=== PATIENT | female | born 1935 | race Caucasian/White ===

== ENCOUNTER 2016-09-06 10:22 | Emergency (ER) | payer MEDICARE, OTHER ==
[~2016-09-06] VITALS: Ht 160 cm; Wt 73.4 kg
[~2016-09-06 10:22] MED LIST: ADVAI100I PO; ALBU1AER INH; ATOR40TA49 PO; CALTTAB5 PO; CEFU1TAB43 PO; CLON-352 PO; DUONI INH; HYDR-3580 PO; LABE200T2 PO; LISI-363 PO; MAXZ25 PO; NITR.4 SL; NORV5TAB PO; NOVO7030P2 SQ; ONDA4TAB7 SL; PRED20 PO; ST JTAB PO; TAB-TAB PO; TIOT18I INH
[2016-09-06 10:28] VITALS: BP 193/81; PULSE 73; RESP 16; TEMP 97.6; O2SAT 94
--- NOTE | 2016-09-06 10:59 | PD ---
HPI Chief Complaint: Headache Time Seen by Provider: 10:44 Travel History International Travel<30 days: No Contact w/Intl Traveler<30days: No Traveled to known affect area: No History of Present Illness HPI This patient complains of having high blood pressure. She takes multiple antihypertensives each morning but did not take them this morning. She checked her pressure was high and she called her physician's office and they advised her to come here so she did not take her medicine. She does not of headache. No presyncopal symptoms. No neurologic complaints. She did have headache yesterday but it has resolved. She does not take blood thinners other than baby aspirin. No head injury. She arrives with a systolic blood pressure of 220. Duration of elevated readings is 3-4 days. Symptoms severity is mild/ asymptomatic. No alleviating factors. PFSH Past Medical History Hx Anticoagulant Therapy: Yes (BABY ASA DAILY) Arthritis: Yes Asthma: Yes Autoimmune Disease: No Anxiety: Yes Depression: No Heart Rhythm Problems: No Cancer: Yes (OVARIAN CA AT 26) Cardiovascular Problems: Yes (HTN , "SILENT PR", CHOL) High Cholesterol: Yes Chemotherapy: No Chest Pain: No Congestive Heart Failure: No COPD: Yes (DOES NOT WEAR OXYGEN) Cerebrovascular Accident: No Diabetes: Yes Patient Takes Glucophage: Yes Diminished Hearing: No Endocrine: Yes Fibromyalgia: Yes Gastrointestinal Disorders: Yes GERD: Yes Genitourinary: Yes (RENAL INSUFFICIENCY "I THINK" -PER PATIENT) Headaches: Yes Hiatal Hernia: No Hypertension: Yes Immune Disorder: No Kidney Stones: No Musculoskeletal: Yes Neurologic: Yes Psychiatric: No Reproductive: Yes Respiratory: Yes (COPD) Migraines: Yes Radiation Therapy: No Renal Failure: Yes Seizures: No Sickle Cell Disease: No Sleep Apnea: No Thyroid Disease: No Ulcer: No Tetanus Vaccination: < 5 Years Influenza Vaccination: Yes ?: Not Menopausal: Yes Past Surgical History Abdominal Surgery: Yes (GALLBLADDER (AGE 33)) AICD: No Arteriovenous Shunt: No Cardiac Surgery: No Cholecystectomy: Yes Ear Surgery: No Endocrine Surgery: No Eye Surgery: No Genitourinary Surgery: No Gynecologic Surgery: Yes (HYSTERECTOMY (AGE 26)) Hysterectomy: Yes Insulin Pump: No Joint Replacement: Yes (titanium nail per pt in right HIP) Oral Surgery: Yes (removed teeth for dentures) Pacemaker: No Thoracic Surgery: No Other Surgery: Yes Social History Alcohol Use: No Tobacco Use: No Substance Use: No Allergies-Medications (Allergen,Severity, Reaction): Coded Allergies: No Known Allergies (Verified , 09/06/16) Reported Meds & Prescriptions Reported Meds & Active Scripts Active Ceftin 500 Mg Tab (Cefuroxime Axetil) 500 Mg Tab 500 Mg PO BID 5 Days Advair Diskus 100/50 (Salmeterol Xinafoate/Fluticasone) Fluticasone/Salmeterol 100/50 Inh 1 Inhalation PO BID Deltasone 20 Mg Tab (Prednisone) 20 Mg Tab 40 Mg PO DAILY Hydrocodone/Acetaminophen 7.5 mg/325 mg 1 Tab Tab 1 Tab PO Q6 PRN Resp: Albuterol/Ipratropium 2.5 Mg/0.5 Mg (Albuterol/Ipratropium) 1 Ampule Nebu 1 Ampule INH Q6-RT PRN Proair Hfa (Albuterol Sulfate) 8.5 Gm Aero 1 Puff INH Q4 * SHAKE WELL BEFORE USE * Reported Lipitor 40 Mg Tab (Atorvastatin Calcium) 40 Mg Tab 40 Mg PO HS Aspirin Ec Low Dose (Aspirin) 81 Mg Tab 81 Mg PO DAILY Maxzide 37.5/25 Tab (Triamterene/HCTZ) 1 Tab Tab 1 Tab PO DAILY Ondansetron Odt (Ondansetron HCl) 4 Mg Tab 4 Mg SL BID PRN Novolin 70/30 (Insulin Human Isoph/Insulin Regular) 100 Units/Ml Inj 42 Units SQ HS Novolin 70/30 (Insulin Human Isoph/Insulin Regular) 100 Units/Ml Inj 40 Units SQ DAILYAC Nitroglycerin Tab 0.4 Mg Sl (Nitroglycerin) 0.4 Mg Subl 0.4 Mg SL DAILY PRN Multivitamin (Multivitamins) 1 Tab Tab 1 Tab PO DAILY Lisinopril 20 mg (Lisinopril) 20 Mg Tab 20 Mg PO BID Norvasc (Amlodipine Besylate) 5 Mg Tab 5 Mg PO DAILY Clonidine Hcl (Clonidine HCl) 0.1 Mg Tab 0.1 Mg PO Q6HPRN FOR BP >170MM SYSTOLIC Labetalol Hcl (Labetalol HCl) 200 Mg Tab 200 Mg PO BID Spiriva 18 Mcg Oral Inh (Tiotropium Boron) 18 Mcg Inhp 18 Mcg INH DAILY Caltrate 600 (Calcium Carbonate) Tab 1 Tab PO DAILY Review of Systems General / Constitutional: No: Fever Eyes: No: Visual changes HENT: Positive: Headaches, No: Lightheadedness Cardiovascular: No: Chest Pain or Discomfort Respiratory: No: Shortness of Breath Gastrointestinal: No: Nausea, Vomiting Genitourinary: No: Dysuria Musculoskeletal: No: Pain Skin: No Rash Neurologic: No: Weakness Psychiatric: No: Depression Endocrine: No: Polydipsia Hematologic/Lymphatic: No: Easy Bruising Physical Exam Narrative GENERAL: Well-nourished, well-developed patient in no apparent distress. SKIN: Focused skin assessment reveals no rash and nodules. Skin is Warm and dry. HEAD: Atraumatic. Normocephalic. EYES: Pupils equal and round. No scleral icterus. No injection or drainage. ENT: No nasal bleeding or discharge. Mucous membranes pink and moist. NECK: Trachea midline. No JVD. CARDIOVASCULAR: Regular rate and rhythm. No murmur appreciated. RESPIRATORY: No accessory muscle use. Clear to auscultation. Breath sounds equal bilaterally. GASTROINTESTINAL: Abdomen soft, non-tender, nondistended. Hepatic and splenic margins not palpable. MUSCULOSKELETAL: No obvious deformities. No clubbing. No cyanosis. No edema. NEUROLOGICAL: Awake and alert. No obvious cranial nerve deficits. Motor grossly within normal limits. Normal speech. PSYCHIATRIC: Appropriate mood and affect; insight and judgment normal. Data Data Last Documented VS Vital Signs Date Time Temp Pulse Resp B/P Pulse Ox O2 Delivery O2 Flow Rate FiO2 09/06/16 11:26 16 97 Room Air 09/06/16 11:26 60 175/65 09/06/16 10:28 97.6 Orders Nifedipine (Procardia) (09/06/16 11:00) [facility] Medical Decision Making Medical Screen Exam Complete: Yes Emergency Medical Condition: Yes Medical Record Reviewed: Yes Differential Diagnosis Hypertensive urgency, accelerated hypertension, noncompliance Narrative Course I have reviewed the patient's electronic medical record. Patient's last visit here was 2014 Patient is neurologically intact without headache or other symptoms Has accelerated hypertension of 220 systolic I gave her dose of Procardia and will observe her and reassess BP Current BP 180 systolic She remains asymptomatic Stable for outpatient follow-up Diagnosis Primary Impression: Accelerated hypertension Departure Forms: Tests/Procedures Additional Instructions: The patient was advised to follow up with their physician and return if they worsen. Check and record BP daily Med/Other Pt SpecificInfo: Other Disposition: DISCHARGE HOME Condition: Stable Iftikhar Chávez MD Sep 06, 2016 10:59
[2016-09-06] MEDS ORDERED: NIFEdipine 20 MG CAP PO ONE (11:00)
[2016-09-06 11:13] VITALS: BP 168/108; PULSE 68; RESP 18; O2SAT 98
[2016-09-06 11:26] VITALS: BP 175/65; PULSE 60; RESP 16; O2SAT 97
== END 2016-09-06 12:11 | disposition home or self-care (01) ==
LOC: PHED 10:22
DX: I10 Essential (primary) hypertension (principal)
CPT/HCPCS: 99283

== ENCOUNTER 2017-10-27 12:00 | Inpatient (IN) ==
[2017-10-27] MEDS ORDERED: MethylPREDNISolone Sod Succinate Inj 40 MG/ML Vial IV.PUSH ONE (12:07)
--- NOTE | 2017-10-27 12:18 | ED ---
HPI General Chief Complaint: Medical Clearance Stated Complaint: Diabetic/Evac Time Seen by Provider: 10/27/17 12:07 Source: patient and EMS Mode of arrival: EMS Limitations: physical limitation History of Present Illness 82-year-old female complains of shortness of breath and elevated blood sugar. Patient has history of COPD and diabetes. Patient states that she has increasing shortness of breath for the past 2 days. Patient states that her blood sugar has been elevated recently. Patient has been taking insulin and follow-up with her physician. Patient states that her blood sugar has been in the 300 range at home. Patient denies any headache. Patient denies any chest pain. Patient denies any coughing congestion. Patient denies abdominal pain. Patient denies any nausea vomiting diarrhea. Patient complaint generalized malaise. Patient denies any focal weakness or numbness of the extremity. EMS was called this morning. O2 saturation on room air was in the 80s. Patient was given nasal cannula O2 and transported to ED for evaluation. Patient has history hypertension, diabetes, hyperlipidemia, COPD and migraine. MD Complaint: shortness of breath Onset (ago): day(s) Context: elevated blood glucose Severity: moderate Consistency/Duration: constant Relieving factors: nothing Exacerbating factors: nothing Known history of: COPD and diabetes Treatment prior to arrival: none Related Data Home oxygen amount: none Home Medications Medication Instructions Recorded Confirmed albuterol sulfate [Ventolin HFA] 1 dose INHALATION QID NEB 10/27/17 10/27/17 amlodipine 10 mg PO DAILY 10/27/17 10/27/17 aspirin [Aspir-81] 81 mg PO DAILY 10/27/17 10/27/17 atorvastatin 40 mg PO HS 10/27/17 10/27/17 buspirone 5 mg PO BID 10/27/17 10/27/17 [id number] 1 cap PO Q4H PRN 10/27/17 10/27/17 [Fioricet] diclofenac sodium [Voltaren] 2 g TOPICAL QID 10/27/17 10/27/17 escitalopram oxalate 10 mg PO DAILY 10/27/17 10/27/17 gabapentin 300 mg PO TID 10/27/17 10/27/17 insulin NPH and regular human 20 unit SUB-Q HS 10/27/17 10/27/17 [Novolin 70/30 U-100 Insulin] insulin NPH and regular human 30 units SUB-Q DAILY 10/27/17 10/27/17 [Novolin 70/30 U-100 Insulin] ipratropium-albuterol 1 dose INHALATION QID 10/27/17 10/27/17 labetalol 200 mg PO BID 10/27/17 10/27/17 levothyroxine 25 mcg PO DAILY 10/27/17 10/27/17 lisinopril 40 mg PO HS 10/27/17 10/27/17 metformin 1,000 mg PO BID 10/27/17 10/27/17 ondansetron 4 mg PO BID PRN 10/27/17 10/27/17 tiotropium-olodaterol [Stiolto 2 puff INHALATION DAILY 10/27/17 10/27/17 Respimat] tramadol 50 mg PO Q6H PRN 10/27/17 10/27/17 Allergies Allergy/AdvReac Type Severity Reaction Status Date / Time No Known Allergies Allergy Unknown NONE Uncoded 10/27/17 12:04 Review of Systems ROS: all other systems reviewed are negative [facility] Medical History Medical History Hx of hysterectomy (Acute) Hx of primary hypertension (Acute) History of COPD (Acute) Hx of diabetes mellitus (Acute) History of high cholesterol (Acute) Hx of migraines (Acute) Surgical History Surgical History Hx of cholecystectomy (Acute) Social History Social History Substance History: No History of Abuse Second Hand Smoke Exposure: No Smoking Status: Former smoker How Often Do You Have a Drink Containing Alcohol: 2 to 4 times a month Recent Travel in [facility] within the Last 8 Weeks: No Recent Out of Country Travel within the Last 8 Weeks: No Immunization History Tetanus Immunization: Unsure Hx Influenza Vaccine This Season: No Exam Narrative Exam Narrative: GENERAL: Well-nourished, well-developed patient. SKIN: Focused skin assessment warm/dry. HEAD: Normocephalic. EYES: No scleral icterus. No injection or drainage. NECK: Supple, trachea midline. No JVD or lymphadenopathy. CARDIOVASCULAR: Regular rate and rhythm without murmurs, gallops, or rubs. RESPIRATORY: Breath sounds equal bilaterally. No accessory muscle use. GASTROINTESTINAL: Abdomen soft, non-tender, nondistended. MUSCULOSKELETAL: No cyanosis, or edema. BACK: Nontender without obvious deformity. No CVA tenderness. Neurologic exam normal. Course Initial Documented Vital Signs Temperature 98.3 F 10/27/17 12:04 Pulse Rate 84 10/27/17 12:04 Respiratory Rate 16 10/27/17 12:04 Blood Pressure 220/90 H 10/27/17 12:04 Pulse Oximetry 93 L 10/27/17 12:04 Last Documented Vital Signs Temperature 98.3 F 10/27/17 12:09 Pulse Rate 82 10/27/17 14:33 Respiratory Rate 16 10/27/17 14:33 Blood Pressure 152/70 H 10/27/17 14:33 Pulse Oximetry 100 10/27/17 14:33 Medical Decision Making MDM Narrative Medical decision making narrative: 82-year-old female with shortness of breath, history COPD and elevated blood sugar. History of diabetes. Albuterol with Atrovent unit dose treatment 3. Solu-Medrol 40 mg IV. Normal saline solution 84 cc an hour. Lasix 40 mg IV given. Rocephin 1 g IV. Zithromax 5 mg IV. Novolin R 5 units IV given. Calcium gluconate 1 g IV given. Medical Screen Exam Complete: Yes Emergency Medical Condition: Yes Differential Diagnosis Differential Diagnosis: Differential diagnosis including acute exacerbation COPD , bronchitis, pneumonia, PE, pneumothorax, hyperglycemia, DKA, electrolyte imbalance. Lab Data Lab results reviewed: Yes I reviewed the patient's lab results. Result diagrams: 10/27/17 12:10 10/27/17 12:10 Lab Results 10/27/17 10/27/17 10/27/17 Range/Units 12:08 12:10 12:10 CBC w Diff WBC (4.0-11.0) th/mm3 RBC (4.00-5.30) mil/mm3 Hgb (11.6-15.3) gm/dL Hct (35.0-46.0) % MCV (80.0-100.0) fL MCH (27.0-34.0) pg MCHC (32.0-36.0) % RDW (11.6-17.2) % Plt Count (150-450) th/mm3 MPV (7.0-11.0) fL Neut % (Auto) (16.0-70.0) % Lymph % (Auto) (9.0-44.0) % Turner % (Auto) (0.0-8.0) % Eos % (Auto) (0.0-4.0) % Baso % (Auto) (0.0-2.0) % Neut # (Auto) (1.8-7.7) th/mm3 Lymph # (Auto) (1.0-4.8) th/mm3 Turner # (Auto) (0.0-0.9) th/mm3 Eos # (Auto) (0.0-0.4) th/mm3 Baso # (Auto) (0.0-0.2) th/mm3 WBC Differential Differential Comment PT 10.7 (9.8-11.6) sec INR 1.1 Ratio Sodium (136-145) meq/L Potassium (3.5-5.1) meq/L Chloride (98-107) meq/L Carbon Dioxide (21.0-32.0) meq/L Anion Gap (5-15) meq/L BUN (7-18) mg/dL Creatinine (0.50-1.00) mg/dL Estimated GFR (>89) mL/min POC Glucose 298 H (68-110) mg/dl Random Glucose (74-106) mg/dL Calcium (8.5-10.1) mg/dL Total Bilirubin (0.2-1.0) mg/dL AST (15-37) U/L ALT (10-53) U/L Alkaline Phosphatase (45-117) U/L B-Natriuretic Peptide 1183 H (0-100) pg/mL Total Protein (6.4-8.2) g/dL Albumin (3.4-5.0) g/dL 10/27/17 10/27/17 Range/Units 12:10 12:10 CBC w Diff Auto diff final WBC 6.7 (4.0-11.0) th/mm3 RBC 4.51 (4.00-5.30) mil/mm3 Hgb 13.3 (11.6-15.3) gm/dL Hct 41.5 (35.0-46.0) % MCV 92.0 (80.0-100.0) fL MCH 29.4 (27.0-34.0) pg MCHC 31.9 L (32.0-36.0) % RDW 15.6 (11.6-17.2) % Plt Count 244 (150-450) th/mm3 MPV 9.1 (7.0-11.0) fL Neut % (Auto) 85.0 H (16.0-70.0) % Lymph % (Auto) 9.4 (9.0-44.0) % Turner % (Auto) 4.1 (0.0-8.0) % Eos % (Auto) 0.3 (0.0-4.0) % Baso % (Auto) 1.2 (0.0-2.0) % Neut # (Auto) 5.7 (1.8-7.7) th/mm3 Lymph # (Auto) 0.6 L (1.0-4.8) th/mm3 Turner # (Auto) 0.3 (0.0-0.9) th/mm3 Eos # (Auto) 0.0 (0.0-0.4) th/mm3 Baso # (Auto) 0.1 (0.0-0.2) th/mm3 WBC Differential . Differential Comment . PT (9.8-11.6) sec INR Ratio Sodium 140 (136-145) meq/L Potassium 6.3 H (3.5-5.1) meq/L Chloride 102 (98-107) meq/L Carbon Dioxide 33.5 H (21.0-32.0) meq/L Anion Gap 5 (5-15) meq/L BUN 31 H (7-18) mg/dL Creatinine 1.70 H (0.50-1.00) mg/dL Estimated GFR 29 L (>89) mL/min POC Glucose (68-110) mg/dl Random Glucose 328 H (74-106) mg/dL Calcium 8.1 L (8.5-10.1) mg/dL Total Bilirubin 0.5 (0.2-1.0) mg/dL AST 93 H (15-37) U/L ALT 85 H (10-53) U/L Alkaline Phosphatase 114 (45-117) U/L B-Natriuretic Peptide (0-100) pg/mL Total Protein 6.7 (6.4-8.2) g/dL Albumin 3.3 L (3.4-5.0) g/dL Imaging Data Attestation: I personally reviewed and interpreted this imaging study as follows : Radiologist's impression: Chest X-Ray 10/27/17 12:07 CONCLUSION: Right lower lobe airspace disease is suspected. Discharge Plan Discharge Disposition Patient Disposition: 30 Still Patient Discharge Details Diagnosis: Pneumonia, Acute renal insufficiency, Acute hyperkalemia, COPD with acute exacerbation, Acute hyperglycemia Physicians Team ED Provider: Harsh Vu Primary Care Provider: Ricardo Pleitez Rxs /Orders / Referrals /Forms Prescriptions: No Action atorvastatin 40 mg Tablet 40 mg PO HS RF: 0 buspirone 5 mg Tablet 5 mg PO BID RF: 0 labetalol 200 mg Tablet 200 mg PO BID RF: 0 tramadol 50 mg Tablet 50 mg PO Q6H PRN (Reason: Acute Pain) RF: 0 amlodipine 10 mg Tablet 10 mg PO DAILY RF: 0 lisinopril 40 mg Tablet 40 mg PO HS RF: 0 ondansetron 4 mg Tablet,Disintegrating 4 mg PO BID PRN (Reason: Nausea And Vomiting) RF: 0 escitalopram oxalate 10 mg Tablet 10 mg PO DAILY RF: 0 diclofenac sodium [Voltaren] 1 % Gel 2 g TOPICAL QID RF: 0 levothyroxine 25 mcg Capsule 25 mcg PO DAILY RF: 0 [id number]-ajcxlarekajek-iyro [Fioricet] 50-300-40 mg Capsule 1 cap PO Q4H PRN (Reason: Acute Pain) RF: 0 ipratropium-albuterol 0.5 mg-3 mg(2.5 mg base)/3 mL Solution For Nebulization 1 dose Inhalation QID RF: 0 insulin NPH and regular human [Novolin 70/30 U-100 Insulin] 100 unit/mL (70-30 ) Suspension 20 unit SUB-Q HS RF: 0 insulin NPH and regular human [Novolin 70/30 U-100 Insulin] 100 unit/mL (70-30 ) Suspension 30 units Sub-Q DAILY RF: 0 aspirin [Aspir-81] 81 mg Tablet,Delayed Release (Dr/Ec) 81 mg PO DAILY RF: 0 metformin 1,000 mg Tablet 1,000 mg PO BID RF: 0 gabapentin 300 mg Capsule 300 mg PO TID RF: 0 albuterol sulfate [Ventolin HFA] 90 mcg/actuation Hfa Aerosol Inhaler 1 dose Inhalation QID NEB RF: 0 tiotropium-olodaterol [Stiolto Respimat] 2.5-2.5 mcg/actuation Mist 2 puff INHALATION DAILY RF: 0 Discharge Interventions Interventions: Vital Signs Last Done: 10/27/17 14:33 Status ED Status: With Doctor
[2017-10-27 12:26] LABS: Baso # (Auto) 0.1 th/mm3 (0.0-0.2); Baso % (Auto) 1.2 % (0.0-2.0); Eos % (Auto) 0.3 % (0.0-4.0); Hematocrit 41.5 % (35.0-46.0); Hemoglobin 13.3 gm/dL (11.6-15.3); Lymph # (Auto) 0.6 th/mm3 (1.0-4.8); Lymph % (Auto) 9.4 % (9.0-44.0); Mean Corpuscular HGB Conc 31.9 % (32.0-36.0); Mean Corpuscular Hemoglobin 29.4 pg (27.0-34.0); Mean Platelet Volume 9.1 fL (7.0-11.0); Mono # (Auto) 0.3 th/mm3 (0.0-0.9); Mono % (Auto) 4.1 % (0.0-8.0); Neut # (Auto) 5.7 th/mm3 (1.8-7.7); Platelet Count 244 th/mm3 (150-450); Red Blood Count 4.51 mil/mm3 (4.00-5.30); Red Cell Distribution Width 15.6 % (11.6-17.2); White Blood Count 6.7 th/mm3 (4.0-11.0)
--- NOTE | 2017-10-27 12:29 | XR ---
EXAM DATE: 10/27/2017 12:27 PM EDT AGE/SEX: 82 years / Female INDICATIONS: Short of breath CLINICAL DATA: This is the patient's initial encounter. Patient reports that signs and symptoms have been present for 2 days and indicates a pain score of 0/10. MEDICAL/SURGICAL HISTORY: Chronic obstructive pulmonary disease. None. COMPARISON: PO[facility], XR CHEST PA AND LAT, 05/20/2015. . FINDINGS: There is consolidation in the right lower lobe. Left lung is clear. Osseous structures are intact. Ca rdiomegaly. CONCLUSION: Right lower lobe airspace disease is suspected. Electronically signed by: Guanako Rangel MD 10/27/2017 12:28 PM EDT
[2017-10-27] MEDS: Sod Chloride 0.9% Inj 1,000 ML IV.CONT SCH (12:37)
[2017-10-27] MEDS ORDERED: Azithromycin Inj 500 MG in Sodium Chlor 0.9% Inj 250 ML IV.SIG ONE (12:40)
[2017-10-27 12:42] LABS: Chloride 102 meq/L (98-107); Potassium 6.3 meq/L (3.5-5.1); Sodium 140 meq/L (136-145)
[2017-10-27 12:45] LABS: Calcium 8.1 mg/dL (8.5-10.1); INR 1.1 Ratio; Prothrombin Time 10.7 sec (9.8-11.6)
[2017-10-27 12:46] LABS: Albumin 3.3 g/dL (3.4-5.0); Anion Gap 5 meq/L (5-15); Blood Urea Nitrogen 31 mg/dL (7-18); Carbon Dioxide 33.5 meq/L (21.0-32.0); Glucose,Random 328 mg/dL (74-106)
[2017-10-27 12:49] LABS: Alanine Aminotransferase 85 U/L (10-53); Aspartate Aminotransferase 93 U/L (15-37); Glomerular Filtration Rate 29 mL/min (>89)
[2017-10-27 12:50] LABS: Total Protein 6.7 g/dL (6.4-8.2)
[2017-10-27 12:51] LABS: Alkaline Phosphatase 114 U/L (45-117)
[2017-10-27] MEDS ORDERED: Calcium Gluconate Inj 1 GM in Dextrose 5% in Water Inj 100 ML IV.SIG ONE ×2 (14:39)
[2017-10-27] MEDS ORDERED: Bisacodyl 10 MG Supp RECTAL PRN (15:06)
[2017-10-27] MEDS ORDERED: Acetaminophen 325 MG Tablet PO PRN (15:06)
[2017-10-27] MEDS: Heparin - SQ 10,000 UNITS/ML Vial SQ SCH (15:16)
--- NOTE | 2017-10-27 15:16 | P.HP ---
History of Present Illness Service: Hospitalist Primary Care Physician: Ricardo Pleitez DO Chief Complaint: Shortness of breath History of Present Illness: Ms. Barber is a pleasant 82-year-old female with a history of COPD, diabetes mellitus, hyperlipidemia, hypertension who presents to the emergency department on 10/27/2017 due to progressively worsening shortness of breath, elevated blood glucose. Patient reports worsening shortness of breath in the last 2 days prior to this admission. She also has noticed elevated glucose in the 300 range. She denies any chest pain, fever or chills. She denies any exacerbation of her cough. Denies any nausea vomiting, abdominal pain. No changes in bowel or bladder habits. ED workup indicated potassium 6.3, creatinine 1.7 blood glucose in the 300 range. BNP was 1183. Chest x-ray shows right lower lobe airspace disease. Social history: Former smoker, denies using tobacco, alcohol, illicit drugs. Family history: No family history of Alzheimer's or Parkinson's. 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 - Medical History Medical History: Medical History (Last Reviewed 10/27/17 @ 12:17 by Harsh Vu MD) Hx of hysterectomy (Acute) Hx of primary hypertension (Acute) History of COPD (Acute) Hx of diabetes mellitus (Acute) History of high cholesterol (Acute) Hx of migraines (Acute) - Surgical History Surgical History: Surgical History (Last Reviewed 10/27/17 @ 12:17 by Harsh Vu MD) Hx of cholecystectomy (Acute) - Tobacco History Second Hand Smoke Exposure: No Tobacco Use In Past 30 Days: No Smoking Status: Former smoker - Alcohol History How Often Do You Have a Drink Containing Alcohol: 2 to 4 times a month - Substance Use History Substance History: No History of Abuse - Travel History Recent Travel in the [place] Within the Last 8 Weeks: No Recent Travel Out of the Country Within the Last 8 Weeks: No - Immunization History Tetanus Immunization: Unsure Hx Influenza Vaccine This Season: No Medications and Allergies Active Medications: Active Medications Acetaminophen (Tylenol) 650 mg PO Q4H PRN PRN Reason: Headache, fever, pain 1-5 Al Hydroxide/Mg Hydroxide (Milk Of Magnesia Liq) 30 ml PO Q12H PRN PRN Reason: Mild Constipation Bisacodyl (Dulcolax Supp) 10 mg RECTAL DAILY PRN PRN Reason: SEVERE CONSITIPATION Heparin Sodium (Porcine) (Heparin Inj) 5,000 units SQ Q12H [facility] Sodium Chloride (Ns Inj) 1,000 mls @ 84 mls/hr IV.CONT .[id number] [facility] Last Admin: 10/27/17 12:37 Dose: 84 mls/hr Calcium Gluconate 1 gm/ (Dextrose) 110 mls @ 110 mls/hr IV.SIG ONCE ONE Stop: 10/27/17 15:38 Last Admin: 10/27/17 14:55 Dose: 110 mls/hr Lactulose (Lactulose Liq) 30 ml PO DAILY PRN PRN Reason: SEVERE CONSITIPATION Ondansetron HCl (Zofran Inj) 4 mg IV.PUSH Q6H PRN PRN Reason: NAUSEA OR VOMITING Sennosides (Senokot) 17.2 mg PO Q12H PRN PRN Reason: Moderate Constipation Allergies Allergy/AdvReac Type Severity Reaction Status Date / Time No Known Allergies Allergy Unknown NONE Uncoded 10/27/17 12:04 Home Medications Medication Instructions Recorded Confirmed Type albuterol sulfate [Ventolin HFA] 1 dose INHALATION QID NEB 10/27/17 10/27/17 History amlodipine 10 mg PO DAILY 10/27/17 10/27/17 History aspirin [Aspir-81] 81 mg PO DAILY 10/27/17 10/27/17 History atorvastatin 40 mg PO HS 10/27/17 10/27/17 History buspirone 5 mg PO BID 10/27/17 10/27/17 History qjplzoogrj-mbgojkhydnsba-znks 1 cap PO Q4H PRN 10/27/17 10/27/17 History [Fioricet] diclofenac sodium [Voltaren] 2 g TOPICAL QID 10/27/17 10/27/17 History escitalopram oxalate 10 mg PO DAILY 10/27/17 10/27/17 History gabapentin 300 mg PO TID 10/27/17 10/27/17 History insulin NPH and regular human 20 unit SUB-Q HS 10/27/17 10/27/17 History [Novolin 70/30 U-100 Insulin] insulin NPH and regular human 30 units SUB-Q DAILY 10/27/17 10/27/17 History [Novolin 70/30 U-100 Insulin] ipratropium-albuterol 1 dose INHALATION QID 10/27/17 10/27/17 History labetalol 200 mg PO BID 10/27/17 10/27/17 History levothyroxine 25 mcg PO DAILY 10/27/17 10/27/17 History lisinopril 40 mg PO HS 10/27/17 10/27/17 History metformin 1,000 mg PO BID 10/27/17 10/27/17 History ondansetron 4 mg PO BID PRN 10/27/17 10/27/17 History tiotropium-olodaterol [Stiolto 2 puff INHALATION DAILY 10/27/17 10/27/17 History Respimat] tramadol 50 mg PO Q6H PRN 10/27/17 10/27/17 History Exam Vital signs: Vital Signs 10/27/17 12:04 10/27/17 12:09 10/27/17 12:15 Temperature 98.3 F 98.3 F Pulse Rate 84 84 Respiratory Rate 16 16 Blood Pressure 220/90 H 220/90 H Pulse Oximetry 93 L 93 L 96 10/27/17 12:29 10/27/17 12:34 10/27/17 12:38 Temperature Pulse Rate 79 81 81 Respiratory Rate 20 20 20 Blood Pressure 195/110 H Pulse Oximetry 96 10/27/17 12:49 10/27/17 14:33 Temperature Pulse Rate 84 82 Respiratory Rate 20 16 Blood Pressure 152/70 H Pulse Oximetry 100 Intake & Output 10/26/17 10/27/17 10/27/17 18:59 06:59 18:59 Intake Total 350 / 350 Balance 350 / 350 Weight 73 kg Intake: IV 350 / 350 Azithromycin Inj 500 MG In NS 250 / 250 Inj 250 ML @ 250 mls/hr IV.SIG ONCE ONE Rx#:[id number] Rocephin Inj 1,000 MG In NS Inj 100 / 100 100 ML @ 200 mls/hr IV.SIG ONCE ONE Rx#:[id number] Narrative: GENERAL: This is a well-nourished, well-developed patient, in no apparent distress. SKIN: No rashes, ecchymoses or lesions. Warm and dry. HEAD: Atraumatic. Normocephalic. No temporal or scalp tenderness. EYES: Pupils equal round and reactive. No injection or drainage. ENT: Nose without bleeding, purulent drainage or septal hematoma. Airway patent. NECK: Trachea midline. No lymphadenopathy. Supple, nontender, no meningeal signs. CARDIOVASCULAR: Regular rate and rhythm without murmurs, gallops, or rubs. No JVD. RESPIRATORY: Very poor air entry. No wheezes, rales, or rhonchi. No accessory muscle use noted. GASTROINTESTINAL: Abdomen soft, non-tender, nondistended. No guarding. MUSCULOSKELETAL: Extremities without clubbing, cyanosis, or edema. NEUROLOGICAL: Awake and alert. Cranial nerves II through XII intact. No focal neurological deficits. Normal speech. Results - Labs CBC & Chem 7: 10/27/17 12:10 10/27/17 14:57 Labs: Laboratory Results - last 24 hr 10/27/17 10/27/17 10/27/17 12:08 12:10 12:10 CBC w Diff WBC RBC Hgb Hct MCV MCH MCHC RDW Plt Count MPV Neut % (Auto) Lymph % (Auto) [place] % (Auto) Eos % (Auto) Baso % (Auto) Neut # (Auto) Lymph # (Auto) [place] # (Auto) Eos # (Auto) Baso # (Auto) WBC Differential Differential Comment PT 10.7 INR 1.1 Sodium Potassium Chloride Carbon Dioxide Anion Gap BUN Creatinine Estimated GFR POC Glucose 298 H Random Glucose Calcium Total Bilirubin AST ALT Alkaline Phosphatase B-Natriuretic Peptide 1183 H Total Protein Albumin 10/27/17 10/27/17 10/27/17 12:10 12:10 14:56 CBC w Diff Auto diff final WBC 6.7 RBC 4.51 Hgb 13.3 Hct 41.5 MCV 92.0 MCH 29.4 MCHC 31.9 L RDW 15.6 Plt Count 244 MPV 9.1 Neut % (Auto) 85.0 H Lymph % (Auto) 9.4 [place] % (Auto) 4.1 Eos % (Auto) 0.3 Baso % (Auto) 1.2 Neut # (Auto) 5.7 Lymph # (Auto) 0.6 L [place] # (Auto) 0.3 Eos # (Auto) 0.0 Baso # (Auto) 0.1 WBC Differential . Differential Comment . PT INR Sodium 140 Potassium 6.3 H Chloride 102 Carbon Dioxide 33.5 H Anion Gap 5 BUN 31 H Creatinine 1.70 H Estimated GFR 29 L POC Glucose 341 H Random Glucose 328 H Calcium 8.1 L Total Bilirubin 0.5 AST 93 H ALT 85 H Alkaline Phosphatase 114 B-Natriuretic Peptide Total Protein 6.7 Albumin 3.3 L - Imaging Impressions Chest X-Ray 10/27/17 12:07 CONCLUSION: Right lower lobe airspace disease is suspected. Caprini VTE Risk Assessment Caprini VTE Risk Assessment: Moderate/High Risk (score >= 2) Caprini Risk Assessment Model: Point Value = 1 Point Value = 2 Point Value = 3 Point Value = 5 Age 41-60 Minor surgery BMI > 25 kg/m2 Swollen legs Varicose veins or History of unexplained or recurrent spontaneous Oral contraceptives or hormone replacement Sepsis (< 1 month) Serious lung disease, including pneumonia (< 1 month) Abnormal pulmonary function Acute myocardial infarction Congestive heart failure (< 1 month) History of inflammatory bowel disease Medical patient at bed rest Age 61-74 Arthroscopic surgery Major open surgery (> 45 min) Laparoscopic surgery (> 45 min) Malignancy Confined to bed (> 72 hours) Immobilizing plaster cast Central venous access Age >= 75 History of VTE Family history of VTE Factor V Leiden Prothrombin [id number] Lupus anticoagulant Anticardiolipin antibodies Elevated serum homocysteine Heparin-induced thrombocytopenia Other congenital or acquired thrombophilia Stroke (< 1 month) Elective arthroplasty Hip, pelvis, or leg fracture Acute spinal cord injury (< 1 month) Prophylaxis Regimen: Total Risk Factor Score Risk Level Prophylaxis Regimen 0-1 Low Early ambulation 2 Moderate Order ONE of the following: *Sequential Compression Device (SCD) *Heparin 5000 units SQ BID 3-4 Higher Order ONE of the following medications: *Heparin 5000 units SQ TID *Enoxaparin/Lovenox 40 mg SQ daily (WT < 150 kg, CrCl > 30 mL/min) *Enoxaparin/Lovenox 30 mg SQ daily (WT < 150 kg, CrCl > 10-29 mL/min) *Enoxaparin/Lovenox 30 mg SQ BID (WT < 150 kg, CrCl > 30 mL/min) AND/OR *Sequential Compression Device (SCD) 5 or more Highest Order ONE of the following medications: *Heparin 5000 units SQ TID (Preferred with Epidurals) *Enoxaparin/Lovenox 40 mg SQ daily (WT < 150 kg, CrCl > 30 mL/min) *Enoxaparin/Lovenox 30 mg SQ daily (WT < 150 kg, CrCl > 10-29 mL/min) *Enoxaparin/Lovenox 30 mg SQ BID (WT < 150 kg, CrCl > 30 mL/min) AND *Sequential Compression Device (SCD) Assessment and Plan - Plan Ms. Barber is a pleasant 82-year-old female with a history of COPD, hyperlipidemia, hypertension who presents to the emergency department due to shortness of breath that has been going on for 2 days. She denies any fever chills. Her cough is not any worse than her chronic cough. Chest x-ray shows right lower lobe pneumonia. Acute pneumonia -PSI Score 92 (age, female, glucose > 249) ==> Hospitalization recommended. -Right sided pneumonia suspicious for aspiration pneumonia -Will start patient on levofloxacin 750 mg daily. Patient denies any trouble swallowing. Aspiration pneumonia is low on the differential. Acute kidney injury Probable CKD stage III Acute hyperkalemia with K+ 6.3. -Creatinine 1.7 during this admission. Previously in 2015 her creatinine was around 1.2-1.5. -Patient received calcium in the ED as well as albuterol and insulin. -We will give her Lasix 40 mg twice daily IV. Full code. Heparin SQ.
[2017-10-27 17:09] LABS: Bilirubin,Urine Negative (Negative); Clarity,Urine Clear (Clear); Color,Urine Yellow (Yellw/Straw); Glucose,Urine (UA) 100 mg/dL (Negative); Leukocyte Esterase,Urine Negative (Negative); Nitrite,Urine Negative (Negative); PH,Urine 5.5 (5.0-8.5); Urobilinogen,Urine 0.2 mg/dL (Less than 2)
[2017-10-27] MEDS ORDERED: Dextrose 50% in Water 50 ML Vial IV.PUSH PRN (17:09)
[2017-10-27 17:22] LABS: Squamous Epithelial Cell,Urine 0-5 /hpf (0-5); WBC,Urine 0-5 /hpf (0-5)
[2017-10-27] MEDS ORDERED: Sodium Polystyrene Sulfonate/Sorbitol Liq 15 GM/60 ML UDC PO ONE (18:00)
[2017-10-27] MEDS ORDERED: Insulin Detemir Inj 1,000 UNIT/10 ML Vial SQ SCH (21:00)
[2017-10-27] MEDS: predniSONE 20 MG Tablet PO SCH (21:42)
[2017-10-27] MEDS: Labetalol 200 MG Tablet PO SCH (21:42)
[2017-10-27] MEDS: Insulin NovoLOG Aspart Correctional Sugar Inj SQ SCH (21:42)
[2017-10-27] MEDS: amLODIPine 10 MG Tablet PO SCH (21:44)
[2017-10-28] MEDS: Sod Chloride 0.9% Inj 1,000 ML IV.CONT SCH ×2 (04:13→12:23)
[2017-10-28] MEDS: Heparin - SQ 10,000 UNITS/ML Vial SQ SCH ×2 (04:13→17:33)
[2017-10-28] MEDS: amLODIPine 10 MG Tablet PO SCH (08:18)
[2017-10-28] MEDS: Labetalol 200 MG Tablet PO SCH ×2 (08:18→21:16)
[2017-10-28] MEDS: predniSONE 20 MG Tablet PO SCH ×2 (08:18→21:16)
[2017-10-28] MEDS: levoFLOXacin 750 MG Tablet PO SCH (08:18)
[2017-10-28] MEDS: Insulin NovoLOG Aspart Correctional Sugar Inj SQ SCH ×4 (08:19→21:19)
[2017-10-28 10:09] LABS: Potassium 4.5 meq/L (3.5-5.1)
[2017-10-28 10:21] LABS: Carbon Dioxide 34.1 meq/L (21.0-32.0)
[2017-10-28 10:37] LABS: Calcium 7.5 mg/dL (8.5-10.1)
[2017-10-28] MEDS ORDERED: Insulin Aspart Prot 70/30 1,000 UNITS/10 ML Vial SQ ONE (12:00)
--- NOTE | 2017-10-28 13:58 | P.PN ---
Subjective Interval history: Follow up for COPD exacerbation, pneumonia, DM. Patient is doing well. No acute concerns. No fever, chills. Family at bedside. Due to prednisone, her BG is elevated. Physical Exam Vital signs: Vital Signs 10/27/17 14:33 10/27/17 16:00 10/27/17 19:18 Temperature 98.6 F Pulse Rate 82 88 Respiratory Rate 16 18 Blood Pressure 152/70 H 181/100 H Pulse Oximetry 100 96 94 L 10/27/17 19:19 10/27/17 20:00 10/28/17 00:00 Temperature 98.2 F 98.0 F Pulse Rate 88 91 H 90 Respiratory Rate 20 18 18 Blood Pressure 196/90 H 189/89 H Pulse Oximetry 93 L 95 10/28/17 04:00 10/28/17 07:27 10/28/17 08:00 Temperature 97.9 F 97.6 F Pulse Rate 72 69 73 Respiratory Rate 18 20 18 Blood Pressure 167/78 H 171/77 H Pulse Oximetry 100 96 94 L 10/28/17 12:00 Temperature 97.2 F L Pulse Rate 69 Respiratory Rate 18 Blood Pressure 125/59 L Pulse Oximetry 94 L Intake & Output 10/27/17 10/28/17 10/28/17 18:59 06:59 18:59 Intake Total 700 / 700 1000 / 1000 Output Total 600 / 600 600 / 600 Balance 100 / 100 400 / 400 Weight 78.2 kg 78.6 kg Intake: IV 460 / 460 1000 / 1000 NS Inj 1,000 ML @ 84 mls/hr IV. 1000 / 1000 CONT .[id number] [facility] Rx#: [id number] Azithromycin Inj 500 MG In NS 250 / 250 Inj 250 ML @ 250 mls/hr IV.SIG ONCE ONE Rx#:[id number] Rocephin Inj 1,000 MG In NS Inj 100 / 100 100 ML @ 200 mls/hr IV.SIG ONCE ONE Rx#:[id number] Oral 240 / 240 Output: Urine 600 / 600 600 / 600 Other: Date of Last Bowel Movement 10/26/17 10/26/17 # Bowel Movements 0 Weight On Admission 78.2 kg Narrative: GENERAL: Alert, NAD. SKIN: Warm and dry. HEAD: Normocephalic. EYES: No scleral icterus. No injection or drainage. NECK: Supple, trachea midline. No JVD or lymphadenopathy. CARDIOVASCULAR: Regular rate and rhythm without murmurs, gallops, or rubs. RESPIRATORY: Moderate air entry, mild wheezes. GASTROINTESTINAL: Abdomen soft, non-tender, nondistended. MUSCULOSKELETAL: No cyanosis, or edema. BACK: Nontender without obvious deformity. No CVA tenderness. Results - Labs CBC & Chem 7: 10/27/17 12:10 10/28/17 09:20 Laboratory Results - last 24 hr 10/27/17 10/27/17 10/27/17 14:56 14:57 16:50 Sodium Potassium 6.1 H Chloride Carbon Dioxide Anion Gap BUN Creatinine Estimated GFR POC Glucose 341 H Random Glucose Calcium Ur Collection Type Clean catch Urine Color Yellow Urine Clarity Clear Urine pH 5.5 Ur Specific [place] 1.020 Urine Protein Negative Urine Glucose (UA) 100 H Urine Ketones Negative Urine Occult Blood Negative Urine Nitrate Negative Urine Bilirubin Negative Urine Urobilinogen 0.2 Ur Leukocyte Esterase Negative Urine WBC 0-5 Ur Squamous Epith Cells 0-5 Micro UA Comment Culture not ind Ur Microscopic Review Microscopic reviewed Urine Culture Comments Culture not ind 10/27/17 10/27/17 10/28/17 20:16 21:58 07:31 Sodium Potassium 4.6 D Chloride Carbon Dioxide Anion Gap BUN Creatinine Estimated GFR POC Glucose 274 H 219 H Random Glucose Calcium Ur Collection Type Urine Color Urine Clarity Urine pH Ur Specific [place] Urine Protein Urine Glucose (UA) Urine Ketones Urine Occult Blood Urine Nitrate Urine Bilirubin Urine Urobilinogen Ur Leukocyte Esterase Urine WBC Ur Squamous Epith Cells Micro UA Comment Ur Microscopic Review Urine Culture Comments 10/28/17 10/28/17 09:20 11:28 Sodium 141 Potassium 4.5 Chloride 101 Carbon Dioxide 34.1 H Anion Gap 6 BUN 38 H Creatinine 1.90 H Estimated GFR 25 L POC Glucose 483 H* Random Glucose 364 H Calcium 7.5 L Ur Collection Type Urine Color Urine Clarity Urine pH Ur Specific [place] Urine Protein Urine Glucose (UA) Urine Ketones Urine Occult Blood Urine Nitrate Urine Bilirubin Urine Urobilinogen Ur Leukocyte Esterase Urine WBC Ur Squamous Epith Cells Micro UA Comment Ur Microscopic Review Urine Culture Comments Microbiology 10/27/17 12:40 Blood - Peripheral Aerobic Blood Culture - Preliminary No growth in 1 day 10/27/17 12:40 Blood - Peripheral Anaerobic Blood Culture - Preliminary No growth in 1 day 10/27/17 12:45 Blood - Peripheral Aerobic Blood Culture - Preliminary No growth in 1 day 10/27/17 12:45 Blood - Peripheral Anaerobic Blood Culture - Preliminary No growth in 1 day Assessment and Plan - Plan Ms. Barber is a pleasant 82-year-old female with a history of COPD, hyperlipidemia, hypertension who presents to the emergency department due to shortness of breath that has been going on for 2 days. She denies any fever chills. Her cough is not any worse than her chronic cough. Chest x-ray shows right lower lobe pneumonia. Acute pneumonia -PSI Score 92 (age, female, glucose > 249) ==> Hospitalization recommended. -Right sided pneumonia suspicious for aspiration pneumonia -Will start patient on levofloxacin 750 mg daily. Patient denies any trouble swallowing. Aspiration pneumonia is low on the differential. Acute kidney injury Probable CKD stage III Acute hyperkalemia with K+ 6.3 ==> 4.5 -Creatinine 1.7 --> 1.90 during this admission. Previously in 2014 her creatinine was around 1.2-1.5. -Patient has outpatient nephrology appointment. Full code. Heparin SQ. Discharge: Probable discharge home tomorrow.
--- NOTE | 2017-10-28 15:43 | ECG ---
Date Performed: 10/27/2017 Time Performed: 12:18:49 PTAGE: 82 years EKG: Sinus rhythm NORMAL ECG Compared to PREVIOUS TRACING , tracing is now normal. Previous tracing showed reverse limb leads whic h is now corrected. PREVIOUS TRACIN04/20/2014 13.46 DOCTOR: Amadeo Newberry Interpretating Date/Time 10/28/2017 15:41:34
[2017-10-28] MEDS: Insulin Detemir Inj 1,000 UNIT/10 ML Vial SQ SCH (21:17)
[2017-10-29] MEDS: Heparin - SQ 10,000 UNITS/ML Vial SQ SCH ×2 (03:49→17:50)
[2017-10-29] MEDS: Labetalol 200 MG Tablet PO SCH ×2 (08:39→20:53)
[2017-10-29] MEDS: Insulin NovoLOG Aspart Correctional Sugar Inj SQ SCH ×4 (08:39→20:54)
[2017-10-29] MEDS: amLODIPine 10 MG Tablet PO SCH (08:39)
[2017-10-29] MEDS: predniSONE 20 MG Tablet PO SCH ×2 (08:39→20:53)
--- NOTE | 2017-10-29 09:36 | P.PN ---
Subjective Interval history: Follow-up for COPD exacerbation, pneumonia, diabetes mellitus. Patient is currently doing well. Currently on 2 L of oxygen via nasal cannula. No fever or chills. She does feel weak. Physical Exam Vital signs: Vital Signs 10/28/17 12:00 10/28/17 14:26 10/28/17 16:00 Temperature 97.2 F L 96.6 F L Pulse Rate 69 53 L 78 Respiratory Rate 18 18 18 Blood Pressure 125/59 L 131/84 Pulse Oximetry 94 L 94 L 10/28/17 20:00 10/28/17 22:05 10/29/17 00:00 Temperature 97.3 F L 97.4 F L Pulse Rate 67 64 63 Respiratory Rate 16 20 16 Blood Pressure 118/62 122/56 L Pulse Oximetry 95 98 94 L 10/29/17 08:34 Temperature Pulse Rate 74 Respiratory Rate 20 Blood Pressure Pulse Oximetry 94 L Intake & Output 10/28/17 10/29/17 10/29/17 18:59 06:59 18:59 Intake Total 600 / 600 480 / 480 Output Total 450 / 450 240 / 240 Balance 150 / 150 240 / 240 Weight 79.2 kg Intake: IV 0 / 0 NS Inj 1,000 ML @ 84 mls/hr IV. 0 / 0 CONT .[id number] [facility] Rx#: [id number] Oral 600 / 600 480 / 480 Output: Urine 450 / 450 240 / 240 Other: # Bowel Movements 2 Narrative: GENERAL: Alert, NAD. SKIN: Warm and dry. HEAD: Normocephalic. EYES: No scleral icterus. No injection or drainage. NECK: Supple, trachea midline. No JVD or lymphadenopathy. CARDIOVASCULAR: Regular rate and rhythm without murmurs, gallops, or rubs. RESPIRATORY: Moderate air entry, mild wheezes. GASTROINTESTINAL: Abdomen soft, non-tender, nondistended. MUSCULOSKELETAL: No cyanosis, or edema. BACK: Nontender without obvious deformity. No CVA tenderness. Results - Labs CBC & Chem 7: 10/27/17 12:10 10/28/17 09:20 Laboratory Results - last 24 hr 10/27/17 10/28/17 10/28/17 12:10 09:20 11:28 Sodium 141 Potassium 4.5 Chloride 101 Carbon Dioxide 34.1 H Anion Gap 6 BUN 38 H Creatinine 1.90 H Estimated GFR 25 L POC Glucose 483 H* Random Glucose 364 H Hemoglobin A1c 7.0 H Calcium 7.5 L 10/28/17 10/28/17 10/29/17 16:37 19:56 07:53 Sodium Potassium Chloride Carbon Dioxide Anion Gap BUN Creatinine Estimated GFR POC Glucose 328 H 319 H 198 H Random Glucose Hemoglobin A1c Calcium Microbiology 10/27/17 12:40 Blood - Peripheral Aerobic Blood Culture - Preliminary No growth in 1 day 10/27/17 12:40 Blood - Peripheral Anaerobic Blood Culture - Preliminary No growth in 1 day 10/27/17 12:45 Blood - Peripheral Aerobic Blood Culture - Preliminary No growth in 1 day 10/27/17 12:45 Blood - Peripheral Anaerobic Blood Culture - Preliminary No growth in 1 day Assessment and Plan - Plan Ms. Barber is a pleasant 82-year-old female with a history of COPD, hyperlipidemia, hypertension who presents to the emergency department due to shortness of breath that has been going on for 2 days. She denies any fever chills. Her cough is not any worse than her chronic cough. Chest x-ray shows right lower lobe pneumonia. Acute pneumonia -PSI Score 92 (age, female, glucose > 249) ==> Hospitalization recommended. -Will start patient on levofloxacin 750 mg daily. Patient denies any trouble swallowing. Aspiration pneumonia is low on the differential. -We will obtain home oxygen walk test. -PT evaluation today. Acute kidney injury Probable CKD stage III Acute hyperkalemia with K+ 6.3 ==> 4.5 -Creatinine 1.7 --> 1.90 during this admission. Previously in 2014 her creatinine was around 1.2-1.5. -Patient has outpatient nephrology appointment. Full code. Heparin SQ. Probable discharge to SNF tomorrow 10/30/2017.
[2017-10-29] MEDS: Sod Chloride 0.9% Inj 1,000 ML IV.CONT SCH (16:50)
[2017-10-29] MEDS: Insulin Detemir Inj 1,000 UNIT/10 ML Vial SQ SCH (20:53)
[2017-10-30] MEDS: Heparin - SQ 10,000 UNITS/ML Vial SQ SCH (04:49)
[2017-10-30] MEDS: Insulin NovoLOG Aspart Correctional Sugar Inj SQ SCH ×2 (08:53→12:38)
[2017-10-30] MEDS: amLODIPine 10 MG Tablet PO SCH (08:59)
[2017-10-30] MEDS: predniSONE 20 MG Tablet PO SCH (08:59)
[2017-10-30] MEDS: Labetalol 200 MG Tablet PO SCH (08:59)
[2017-10-30] MEDS: levoFLOXacin 750 MG Tablet PO SCH (08:59)
--- NOTE | 2017-10-30 12:05 | P.DS ---
Date of admission: 10/27/17 15:06 Primary care physician: Ricardo Pleitez DO Brief History from admission: Ms. Barber is a pleasant 82-year-old female with a history of COPD, diabetes mellitus, hyperlipidemia, hypertension who presents to the emergency department on 10/27/2017 due to progressively worsening shortness of breath, elevated blood glucose. Patient reports worsening shortness of breath in the last 2 days prior to this admission. She also has noticed elevated glucose in the 300 range. She denies any chest pain, fever or chills. She denies any exacerbation of her cough. Denies any nausea vomiting, abdominal pain. No changes in bowel or bladder habits. ED workup indicated potassium 6.3, creatinine 1.7 blood glucose in the 300 range. BNP was 1183. Chest x-ray shows right lower lobe airspace disease. Social history: Former smoker, denies using tobacco, alcohol, illicit drugs. Family history: No family history of Alzheimer's or Parkinson's. DS: Diagnosis - Discharge Diagnosis (1) COPD with acute exacerbation Status: Acute DS: Medications - Discharge Medications Prescriptions: gabapentin 100 mg PO TID 30 Days #90 cap insulin aspart U-100 [Novolog U-100 Insulin aspart] 1 sliding scale dose SUB-Q UD 30 Days ml insulin detemir U-100 [Levemir U-100 Insulin] 12 unit SUB-Q HS 30 Days #3.6 ml levofloxacin 750 mg PO Q48H #1 tab prednisone 20 mg PO BID #4 tab DS: Summary Hospital Course: Ms. Barber is a pleasant 82-year-old female with a history of COPD, hyperlipidemia, hypertension who presents to the emergency department due to shortness of breath that has been going on for 2 days. She denies any fever chills. Her cough is not any worse than her chronic cough. Chest x-ray shows right lower lobe pneumonia. Acute pneumonia COPD exacerbation -PSI Score 92 (age, female, glucose > 249) ==> Hospitalization recommended. -levofloxacin 750 mg Q48hrs. -May need home O2 if determined at SNF. Acute kidney injury Probable CKD stage III Acute hyperkalemia with K+ 6.3 ==> 4.5 -Creatinine 1.7 --> 1.90 during this admission. Previously in 2014 her creatinine was around 1.2-1.5. -Patient has outpatient nephrology appointment on 11/14/2017. Diabetes mellitus -Avoid Metformin -Upon discharge, continue Levemir 12 units QHS, sliding scale insulin. -Gabapentin reduced to 100mg TID. Avoid NSAIDs. Full code. - Time Spent with Patient Total time spent providing and/or coordinating discharge services: Greater than 30 minutes - Quality: VTE Deep Vein Thrombosis/Pulmonary Embolism Present on Admission: No Exam Vital signs: Vital Signs 10/29/17 12:00 10/29/17 14:39 10/29/17 16:00 Temperature 97.7 F 97.2 F L Pulse Rate 74 74 77 Respiratory Rate 18 20 18 Blood Pressure 127/86 129/79 Pulse Oximetry 96 96 10/29/17 19:19 10/29/17 20:00 10/30/17 00:00 Temperature 96.0 F L 97.1 F L Pulse Rate 72 70 75 Respiratory Rate 18 16 16 Blood Pressure 149/66 H 169/72 H Pulse Oximetry 99 96 94 L 10/30/17 07:35 10/30/17 08:00 Temperature 96.8 F L Pulse Rate 78 78 Respiratory Rate 20 20 Blood Pressure 167/85 H Pulse Oximetry 93 L 93 L Intake & Output 10/29/17 10/30/17 10/30/17 18:59 06:59 18:59 Intake Total 670 / 670 200 / 200 Output Total 350 / 350 Balance 670 / 670 -150 / -150 Weight 79.2 kg Intake: Oral 670 / 670 200 / 200 Output: Urine 350 / 350 Other: # Voids 3 # Bowel Movements 1 Narrative: GENERAL: Alert, NAD. SKIN: Warm and dry. HEAD: Normocephalic. EYES: No scleral icterus. No injection or drainage. NECK: Supple, trachea midline. No JVD or lymphadenopathy. CARDIOVASCULAR: Regular rate and rhythm without murmurs, gallops, or rubs. RESPIRATORY: Moderate air entry, mild wheezes. GASTROINTESTINAL: Abdomen soft, non-tender, nondistended. MUSCULOSKELETAL: No cyanosis, or edema. BACK: Nontender without obvious deformity. No CVA tenderness. Results Procedures completed during hospitalization: None. Labs on day of discharge: Labs from last 24 hours 10/30/17 10/29/17 10/29/17 07:55 21:56 20:22 POC Glucose 218 H 388 H 456 H* 10/29/17 16:40 POC Glucose 460 H* Preliminary micro results at discharge 10/27/17 12:40 Aerobic Blood Culture - Preliminary Blood - Peripheral No growth in 3 days Anaerobic Blood Culture - Preliminary No growth in 3 days 10/27/17 12:45 Aerobic Blood Culture - Preliminary Blood - Peripheral No growth in 3 days Anaerobic Blood Culture - Preliminary No growth in 3 days - Impressions ITS Impressions Chest X-Ray 10/27/17 12:07 CONCLUSION: Right lower lobe airspace disease is suspected. Discharge Plan - Discharge Disposition Patient Disposition: Discharge to SNF - Discharge Condition Condition: Good - Discharge Order Discharge Orders: Discharge Order (Routine); Ordered 10/30/17 Ordered By: Eli Her - Discharge Details Anticipated Discharge Date: 10/30/17 - Physicians Team Primary Care Provider: Ricardo Pleitez Attending Provider: Eli Her Other Providers: Jhon Black,[place]
[2017-10-30 12:26] VITALS: BP 144/67; PULSE 59; RESP 18; TEMP 96.3; O2SAT 95
== END 2017-10-30 13:31 ==
LOC: PHED 12:00 → PHEDA 15:06 → PH3 15:53
PROVIDERS: ADMIT Hospitalist; ATTEND Hospitalist